=== PATIENT | male | born 2000 | race Caucasian/White ===

== ENCOUNTER 2024-06-23 20:13 | Inpatient (IN) | payer SELFPAY ==
[2024-06-23 20:19] VITALS: BP 168/97; PULSE 101; RESP 16; TEMP 36.8; O2SAT 98; BMI 31.1
--- NOTE | 2024-06-23 20:28 | XRR_ITS ---
PROCEDURE INFORMATION: Exam: XR Right Hand Exam date and time: 06/23/2024 8:44 PM Age: 23 years old Clinical indication: Injury or trauma; Other: Punched wall; Swelling (edema); Hand; Right TECHNIQUE: Imaging protocol: Radiologic exam of the right hand. Views: 3 or more views. COMPARISON: No relevant prior studies available. FINDINGS: Bones/joints: Normal. Soft tissues: Normal. XR/XR hand RT min 3V* [id number] IMPRESSION: No acute findings.
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
--- NOTE | 2024-06-23 20:57 | PC.NURSE ---
96 hour Involuntary Hold Patient Rights have been read to the patient and a copy of the same has been given to him. Industrial Millwright Fred Bill was present at bedside at the time of presentation of Rights.
[2024-06-23 21:02] LABS: Basophils # 0.1 10^3/uL (0.0-0.1); Basophils % 0.6 %; Eosinophils % 0.2 %; Hematocrit 47.8 % (37-53); Mean Corpuscular HGB Conc 34.7 g/dL (30-55); Mean Corpuscular Hemoglobin 29.5 pg (27-33); Mean Corpuscular Volume 85.1 fl (82-101); Mean Platelet Volume 10.1 fL (7.4-10.4); Monocytes # 0.7 10^3/uL (0.2-0.9); Neutrophils # 8.55 10^3/uL (1.8-7.7); Neutrophils % 68.9 %; Nucleated Red Blood Cells % 0 %; Platelet Count 211 10^3/cmm (157-399); Red Blood Count 5.62 10^6/uL (3.85-5.65); Red Cell Distribution Width 12.3 % (12.1-15.1); White Blood Count 12.41 10^3/uL (3.29-11.43)
[2024-06-23 21:23] LABS: Alanine Aminotransferase 37 U/L (0-41); Albumin Level 4.7 g/dL (3.5-5.2); Alkaline Phosphatase 88 U/L (40-130); Anion Gap 16.5 (5-19); Aspartate Amino Transferase 20 U/L (0-40); Blood Urea Nitrogen 12 mg/dL (6-20); Calcium 10.6 mg/dL (8.5-10.5); Carbon Dioxide 24 mmol/L (22-29); Chloride 104 mmol/L (98-107); Creatinine Clr Calc Pharmacy 165.8364; Globulin 3.1 g/dL (1.3-4.6); Glucose 102 mg/dL (65-115); Osmolality Calculated 292 mOsm/kg (285-295); Potassium 3.5 mmol/L (3.5-5.1); Sodium 141 mmol/L (136-145); Total Bilirubin 1.1 mg/dL (0.15-1.2); Total Protein 7.8 g/dL (6.6-8.7)
[2024-06-23 21:25] LABS: Acetaminophen < 5.0 ug/mL (10-30); Alcohol Level < 10 mg/dL (0-10); Salicylate < 0.3 mg/dL (3-10)
[2024-06-23 21:38] VITALS: BP 159/86; PULSE 91; RESP 16; O2SAT 96
[2024-06-23 21:58] LABS: Amphetamines Screen Urine Negative (Negative); Barbiturates Screen Urine Negative (Negative); Benzodiazepines Screen Urine Negative (Negative); Cocaine Screen Urine Negative (Negative); Opiate Screen Urine Negative (Negative); PCP Screen Urine Negative (Negative); THC Screen Urine Negative (Negative)
[2024-06-23 22:12] VITALS: BP 128/73; PULSE 72; O2SAT 98
[2024-06-23 23:06] VITALS: BP 176/93; PULSE 81; RESP 18; TEMP 36.4; O2SAT 99
[2024-06-24] MEDS: acetaminophen 325 mg Tablet 650 MG PO (04:05)
[2024-06-24 06:00] VITALS: BP 113/51; PULSE 59; RESP 19; TEMP 36.6; O2SAT 99
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
[2024-06-24] MEDS: nicotine 2 mg Gum BUCCAL (13:09)
[2024-06-24 14:00] VITALS: BP 144/82; PULSE 73; RESP 16; TEMP 36.8; O2SAT 97
[2024-06-24 20:32] VITALS: BP 113/56; PULSE 70; RESP 18; TEMP 36.3; O2SAT 98
[2024-06-24] MEDS: ibuprofen 600 mg Tablet PO (20:42)
[2024-06-24] MEDS: trazodone 50 mg Tablet PO (21:25)
[2024-06-24] MEDS: hyDROXYzine 25 mg Capsule 50 MG PO (21:25)
[2024-06-24] MEDS: fluoxetine 10 mg Capsule PO (21:25)
[2024-06-25 06:00] VITALS: BP 134/71; PULSE 58; RESP 16; TEMP 36.6; O2SAT 97
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
[2024-06-25] MEDS: fluoxetine 20 mg Capsule PO (09:16)
[2024-06-25] MEDS: nicotine 2 mg Gum BUCCAL ×2 (09:16→14:46)
[2024-06-25 14:00] VITALS: BP 137/73; PULSE 62; RESP 17; TEMP 36.6; O2SAT 98
[2024-06-25 19:31] VITALS: BP 165/78; PULSE 75; RESP 18; TEMP 36.4; O2SAT 99
[2024-06-25] MEDS: trazodone 50 mg Tablet PO (20:15)
[2024-06-25] MEDS: hyDROXYzine 25 mg Capsule 50 MG PO (20:15)
[2024-06-26 06:00] VITALS: BP 107/70; PULSE 78; RESP 16; TEMP 36.7; O2SAT 97; BMI 30.4
[2024-06-26] MEDS: fluoxetine 20 mg Capsule PO (08:28)
[2024-06-26] MEDS: nicotine 2 mg Gum BUCCAL ×2 (08:28→18:17)
[2024-06-26 14:00] VITALS: BP 167/83; PULSE 65; RESP 18; TEMP 36.6; O2SAT 93
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
[2024-06-26] MEDS: hyDROXYzine 25 mg Capsule 50 MG PO (19:59)
[2024-06-26] MEDS: trazodone 50 mg Tablet PO (19:59)
[2024-06-26 21:49] VITALS: BP 127/75; PULSE 63; RESP 16; TEMP 36.9; O2SAT 97
[2024-06-27 06:00] VITALS: BP 138/82; PULSE 67; RESP 17; TEMP 36.6; O2SAT 97
[2024-06-27 08:31] VITALS: BP 159/79; PULSE 82; RESP 16; TEMP 36.9; O2SAT 96
[2024-06-27] MEDS: nicotine 2 mg Gum BUCCAL ×2 (08:41→12:44)
[2024-06-27] MEDS: fluoxetine 20 mg Capsule PO (08:41)
[2024-06-27 14:00] VITALS: BP 148/84; PULSE 81; RESP 16; TEMP 36.6; O2SAT 97
--- NOTE | 2024-06-27 15:17 | W.PM.NPUDCS ---
Diagnoses at Discharge Discharge Diagnosis (1) Suicidal ideation: Status: Acute (2) PTSD (post-traumatic stress disorder): Status: Acute (3) Major depressive disorder, recurrent: Status: Acute (4) Parent-child relational problem: Status: Acute (5) Partner relational problem: Status: Acute (6) History of ADHD: Status: Acute (7) Adjustment disorder with mixed disturbance of emotions and conduct: Status: Acute Reason for Visit Reason for Visit: MHE Brief History: History of Present Illness Irvin Huang is a 23 year old male Chief Complaint: Psychiatric Symptoms Stated Complaint: MHE Time Seen by Provider: 06/23/24 20:16 Source: patient Mode of arrival: ambulatory Limitations: no limitations History of Present Illness: 23-year-old male who is here with stress anxiety depression with suicidal thoughts. 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 He is not on any psych meds at this time. He denies any worse or improving factors Associated symptoms: Reports depression and suicidal ideation. He was admitted to the neuropsychiatric unit for definitive treatment of those issues. He is unknown to the psychiatric community inpatient or outpatient and has no real history of treatment. He presents today reporting: Chief complaint The patient is experiencing stress and depression due to a recent breakup with a partner who was found to be manipulative and unfaithful. This has led to significant emotional distress and has triggered aggressive behaviors. History of the present complaint The patient, born on 2000, reported experiencing significant stress and depression for an unspecified duration. The severity of these symptoms has recently been exacerbated by a distressing event in his personal life. He discovered that a person he was in a long-distance relationship with had been manipulating other men through multiple Facebook accounts. This revelation has caused him significant emotional distress and appears to be the primary trigger for his current state of mental health. The patient reported that he has been experiencing migraines, for which he takes Ibuprofen. He also mentioned having blackout moments of intense anger, during which he has damaged property. These episodes are followed by feelings of regret and distress, suggesting a lack of control over these outbursts. He also reported experiencing nightmares and intrusive thoughts, which have been preventing him from sleeping. These thoughts and nightmares often revolve around themes of abandonment and distressing events. The patient also reported experiencing symptoms of anxiety, particularly in high-stress situations or during arguments. He described instances of shaking, hyperventilating, and having trouble breathing. He also expressed feelings of paranoia, feeling as though his life is constantly going wrong and wishing for a break from the continuous stream of negative events. The patient has a history of ADHD, for which he was prescribed medication as a child. However, he stopped taking the medication due to its appetite-suppressing side effects. He reported that he still experiences symptoms of ADHD, such as difficulty focusing and daydreaming. He also mentioned struggling with test-taking due to anxiety and freezing up, which has affected his job-seeking efforts. The patient reported a history of bullying during his school years, which caused him significant distress and led to physical symptoms such as migraines. He also mentioned experiencing periods of low mood, feelings of hopelessness, and crying himself to sleep during his childhood. However, he denied having any thoughts of self-harm or suicide. The patient has not previously been on psychiatric medication, nor has he previously sought outpatient services or been admitted to a psychiatric hospital. He reported using tobacco, specifically chewing tobacco, at a rate of about a can to a can and a half per day. He also reported previous alcohol use but stated that he has largely given up drinking. He mentioned briefly using cannabis gummies but stopped due to job-seeking efforts. The patient's current emotional state appears to be significantly impacted by recent events, including the end of his relationship and an ongoing issue with law enforcement. He expressed a willingness to try medication to help manage his symptoms of depression and anxiety. Mental health history The patient has a history of ADHD diagnosed in childhood, for which he was prescribed medication. However, he stopped taking the medication due to loss of appetite and subsequent physical weakness. He also reports having experienced periods of depression during his youth, often crying himself to sleep and wishing for an end to his suffering. He has had thoughts of but denies any intent to harm himself. He has never been on psychiatric medication and has never sought outpatient services for mental health. Social history The patient uses tobacco, consuming about a can to a can and a half per day. He has quit drinking alcohol and does not smoke. He used to consume cannabis gummies but stopped a few months ago in order to secure a job. He has no history of using other drugs. He was in a long-distance relationship which recently ended due to his partner's infidelity. His parents when he was 14, which was a significant emotional event for him. Mental Status Exam MSE Comments: This is a tall, overweight versus obese white male in hospital scrubs with adequate grooming and limited eye contact. Left arm above elbow amputation reportedly from age 1 so quite undersized in relation to his size and size of his right arm. No abnormal movements except for mild psychomotor retardation. He was cooperative with exam in mild distress. Speech was slightly decreased rate and volume. Mood described as getting better, his affect was congruent. Thought process was mostly organized. Thought content: Patient denied suicidal or homicidal ideation. 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 The patient reports experiencing anxiety in high-stress situations, often leading to shaking and hyperventilation. He has been having blackout moments where he becomes aggressive and damages objects around him, later not remembering the incident. He reports hearing voices in his head since childhood, which he manages by listening to music. He has been having nightmares and intrusive thoughts, which have been affecting his sleep. He also reports experiencing flashbacks of past traumatic events. Attention and concentration were intact and his recent and remote memory was reliable, but none were formally tested. He is alert and oriented x 3. Insight and judgment are fair. Impulse control is limited. Discharge Data Studies Completed and Pending: Completed Studies During Hospitalization Category Date Time Status XR hand RT min 3V * [id number] Stat Exams 06/23/24 20:28 Completed Radiology Impressions Hand X-Ray 06/23/24 20:28 IMPRESSION: No acute findings. Laboratory Results WBC 12.41 10^3/uL (3. 29-11.43) H 06/23/24 20:42 RBC 5.62 10^6/uL (3.8 5-5.65) 06/23/24 20:42 Hgb 16.60 g/dL (11.27 -16.99) 06/23/24 20:42 Hct 47.8 % (37-53) 06/23/24 20:42 MCV 85.1 fl (82-101) 06/23/24 20:42 MCH 29.5 pg (27-33) 06/23/24 20:42 MCHC 34.7 g/dL (30-55) 06/23/24 20:42 RDW 12.3 % (12.1-15.1 ) 06/23/24 20:42 Plt Count 211 10^3/cmm (157 -399) 06/23/24 20:42 MPV 10.1 fL (7.4-10.4 ) 06/23/24 20:42 Neut % (Auto) 68.9 % 06/23/24 20:42 Lymph % (Auto) 24.0 % 06/23/24 20:42 [place] % (Auto) 6.0 % 06/23/24 20:42 Eos % (Auto) 0.2 % 06/23/24 20:42 Baso % (Auto) 0.6 % 06/23/24 20:42 Neut # (Auto) 8.55 10^3/uL (1.8 -7.7) H 06/23/24 20:42 Lymph # (Auto) 3.0 10^3/uL (0.8- 4.8) 06/23/24 20:42 [place] # (Auto) 0.7 10^3/uL (0.2- 0.9) 06/23/24 20:42 Eos # (Auto) 0.0 10^3/uL (0.0- 0.8) 06/23/24 20:42 Baso # (Auto) 0.1 10^3/uL (0.0- 0.1) 06/23/24 20:42 Nucleated RBC % (a uto) 0 % 06/23/24 20:42 Nucleated RBCs # 0.0 /100WBC 06/23/24 20:42 Sodium 141 mmol/L (136-1 45) 06/23/24 20:42 Potassium 3.5 mmol/L (3.5-5 .1) 06/23/24 20:42 Chloride 104 mmol/L (98-10 7) 06/23/24 20:42 Carbon Dioxide 24 mmol/L (22-29) 06/23/24 20:42 Anion Gap 16.5 (5-19) 06/23/24 20:42 BUN 12 mg/dL (6-20) 06/23/24 20:42 Creatinine 1.0 mg/dL (0.7-1. 2) 06/23/24 20:42 GFR Calculation 91.0 mL/min (90-1 30) 06/23/24 20:42 Glucose 102 mg/dL (65-115 ) 06/23/24 20:42 Calculated Osmolal ity 292 mOsm/kg (285- 295) 06/23/24 20:42 Calcium 10.6 mg/dL (8.5-1 0.5) H 06/23/24 20:42 Total Bilirubin 1.1 mg/dL (0.15-1 .2) 06/23/24 20:42 AST 20 U/L (0-40) 06/23/24 20:42 ALT 37 U/L (0-41) 06/23/24 20:42 Alkaline Phosphata se 88 U/L (40-130) 06/23/24 20:42 Total Protein 7.8 g/dL (6.6-8.7 ) 06/23/24 20:42 Albumin 4.7 g/dL (3.5-5.2 ) 06/23/24 20:42 Globulin 3.1 g/dL (1.3-4.6 ) 06/23/24 20:42 Salicylates < 0.3 mg/dL (3-10 ) L 06/23/24 20:42 Urine Opiates Scre en Negative ng/mL (N egative) 06/23/24 20:35 Acetaminophen < 5.0 ug/mL (10-3 0) L 06/23/24 20:42 Ur Barbiturates Sc reen Negative ng/mL (N egative) 06/23/24 20:35 Ur Phencyclidine S crn Negative ng/mL (N egative) 06/23/24 20:35 Ur Amphetamines Sc reen Negative ng/mL (N egative) 06/23/24 20:35 U Benzodiazepines Scrn Negative ng/mL (N egative) 06/23/24 20:35 Urine Cocaine Scre en Negative ng/mL (N egative) 06/23/24 20:35 U Marijuana (THC) Screen Negative ng/mL (N egative) 06/23/24 20:35 Ethyl Alcohol < 10 mg/dL (0-10) 06/23/24 20:42 Vitals: Last Vital Signs Temp 98 F 06/27/24 14:00 Pulse 81 06/27/24 14:00 Resp 16 06/27/24 14:00 BP 148/84 06/27/24 14:00 Pulse Ox 97 06/27/24 14:00 O2 Del Method Room Air 06/27/24 14:00 Discharge Plan Discharge Patient Disposition: Home Condition: Stable Prescriptions: New trazodone 50 mg Tablet 50 mg PO BEDTIME PRN (Reason: Sleep) 30 Days Qty: 30 1RF fluoxetine 20 mg Capsule 20 mg PO DAILY 30 Days Qty: 30 1RF hydroxyzine pamoate 25 mg Capsule 50 mg PO Q6H PRN (Reason: Anxiety) 30 Days Qty: 120 1RF Discharge Orders: Discharge Order (Routine); Ordered 06/27/24 Ordered By: Corey Jones Discharge Diet: Regular Discharge Activity: Resume usual activity Patient Instructions: Opioid Safety Discharge Attestations NPU Time Spent in Discharge Care*: less than 30 min Specific Discharge Activities: Specific discharge activities: educating patient, discussing with special education case manager/social workers/dc planners, documenting/other paperwork and evaluating patient/reviewing data Coding Level of Care Code Acute Code for Chg Fwd Diagnoses Suicidal ideation R45.851 PTSD (post-traumatic stress disorder) F43.10 Major depressive disorder, recurrent F33.9 Parent-child relational problem Z62.820 Partner relational problem Z63.0 History of ADHD Z86.59 Adjustment disorder with mixed disturbance of emotions and conduct F43.25
[2024-06-27 15:33] VITALS: BP 148/84; PULSE 81; RESP 16; TEMP 36.6; O2SAT 97
== END 2024-06-27 17:18 | disposition home or self-care (01) | DRG 882 ==
LOC: ER 20:56 → NP 21:13
PROVIDERS: Admitting Provider Psychiatry & Neurology Psychiatry; Emergency Provider Emergency Medicine; Visit Provider Psychiatry & Neurology Psychiatry
DX: F43.25 Adjustment disorder with mixed disturbance of emotions and conduct (principal); F33.9 Major depressive disorder, recurrent, unspecified; R45.851 Suicidal ideations; F41.9 Anxiety disorder, unspecified; Z63.0 Problems in relationship with spouse or partner; F17.220 Nicotine dependence, chewing tobacco, uncomplicated; F43.10 Post-traumatic stress disorder, unspecified; F90.9 Attention-deficit hyperactivity disorder, unspecified type
CPT/HCPCS: 36415; 73130; 80053; 80306; 80307; 85025; 96365; 96375; 97150; 97165; 99285